=== PATIENT | male | born 1955 | race Caucasian/White ===

== ENCOUNTER 2017-01-19 08:32 | Day surgery (SDC) | payer OTHER ==
[~2017-01-19] VITALS: Ht 180.3 cm; Wt 118.2 kg
[2017-01-19] MEDS ORDERED: LOSARTAN PO (10:19)
[2017-01-19] MEDS ORDERED: BP MED PO (10:19)
[2017-01-19] MEDS ORDERED: CHOLESTEROL MED PO (10:19)
[2017-01-19] MEDS ORDERED: METFORMIN PO (10:19)
[2017-01-19] MEDS ORDERED: POTASSIUM PO (10:19)
[2017-01-19] MEDS ORDERED: ELIQUIS PO (10:19)
[2017-01-19 10:30] VITALS: Ht 180.3 cm; Wt 118.2 kg
[2017-01-19] MEDS ORDERED: PROPOFOL 20 ML ONE (11:30)
[2017-01-19] MEDS ORDERED: LIDOCAINE 2% (SDV) 5 ML INJ ONE (11:30)
[2017-01-19 11:32] VITALS: BP 118/68; PULSE 82; RESP 17
--- NOTE | 2017-01-19 11:53 | OPPN ---
Date/Time of Note Date/Time of Note DATE: 01/19/17 TIME: 11:52 Operative Report Preoperative Diagnosis Positive occult blood in stool Postoperative Diagnosis Small sigmoid polyp was removed Diverticulosis of the colon Internal hemorrhoids Operation/Procedure Performed Colonoscopy and biopsy Surgeon see signature line spa assistant manager None Anesthesia: MAC Estimated blood loss: none Transfusion Required none Specimen Sigmoid polyp biopsy Grafts/Implants none Complications none MIRANDA GARLAND MD Jan 19, 2017 11:53
--- NOTE | 2017-01-19 11:53 | OPPN ---
Date/Time of Note Date/Time of Note DATE: 01/19/17 TIME: 11:52 Operative Report Preoperative Diagnosis Positive occult blood in stool Postoperative Diagnosis Small sigmoid polyp was removed Diverticulosis of the colon Internal hemorrhoids Operation/Procedure Performed Colonoscopy and biopsy Surgeon see signature line observation assistant None Anesthesia: MAC Estimated blood loss: none Transfusion Required none Specimen Sigmoid polyp biopsy Grafts/Implants none Complications none MIRANDA GARLAND MD Jan 19, 2017 11:53
--- NOTE | 2017-01-19 11:53 | OPPN ---
Date/Time of Note Date/Time of Note DATE: 01/19/17 TIME: 11:52 Operative Report Preoperative Diagnosis Positive occult blood in stool Postoperative Diagnosis Small sigmoid polyp was removed Diverticulosis of the colon Internal hemorrhoids Operation/Procedure Performed Colonoscopy and biopsy Surgeon see signature line activities assistant None Anesthesia: MAC Estimated blood loss: none Transfusion Required none Specimen Sigmoid polyp biopsy Grafts/Implants none Complications none MIRANDA GARLAND MD Jan 19, 2017 11:53
[2017-01-19 12:15] VITALS: BP 116/59; RESP 20
--- NOTE | 2017-01-19 12:37 | GILP ---
DATE OF PROCEDURE: NAME OF PROCEDURES: Colonoscopy and biopsy. SURGEON: Miranda Acosta MD PREOPERATIVE DIAGNOSIS: Positive occult blood in stool. POSTOPERATIVE DIAGNOSES 1. Colonoscopy all the way to the cecum. 2. Status post segmental sigmoid resection. 3. Small sigmoid colon polyp was removed using the biopsy forceps. 4. Diverticulosis of the colon. 5. Internal hemorrhoids. INDICATION FOR THE PROCEDURE: Mr. Patel Alarcon is a 61-year-old male patient who was noted to have positive occult blood in stool. The patient was scheduled for colonoscopy for further evaluation. The procedure and possible complications were well explained to the patient. The patient understood and consented to the procedure. DESCRIPTION OF PROCEDURE: Under the influence of anesthesia, the colonoscope was carefully introduc ed in the rectum and under direct vision, it was advanced all the way to the cecum. FINDINGS: He was status post sigmoid resection of the sigmoid colon. He was noted to have a small sigmoid colon polyp and it was removed using the biopsy forceps. He had diverticulosis of the colon and internal hemorrhoids. He tolerated the procedure very well and there was no complication from the procedure. At the end o f the procedure, he was awake with stable vital signs and he was discharged home to the care of his family. IMPRESSION: Please see postoperative diagnosis. PLAN: 1. Next screening colonoscopy in 10 years. 2. The patient was advised high fiber diet. Dictated By: MIRANDA JIMENEZ/CLAIRE Conf#: [id number] DID#: [id number]
== END 2017-01-19 12:33 | disposition home or self-care (01) ==
LOC: GIL 08:32
PROVIDERS: ATTEND Internal Medicine Gastroenterology
DX: K92.1 Melena (principal); D12.5 Benign neoplasm of sigmoid colon; K57.90 Diverticulosis of intestine, part unspecified, without perforation or abscess without bleeding; K64.8 Other hemorrhoids; E11.9 Type 2 diabetes mellitus without complications; I10 Essential (primary) hypertension; Z86.718 Personal history of other venous thrombosis and embolism; E66.9 Obesity, unspecified; Z68.36 Body mass index [BMI] 36.0-36.9, adult; G47.30 Sleep apnea, unspecified
CPT/HCPCS: 45380; 82962; 88305; Z7610